=== PATIENT | female | born 1950 | race Two or more races ===

== ENCOUNTER 2017-12-27 02:05 | Inpatient (IN) | END 2017-12-28 14:15 | disposition home or self-care (01) | DRG 744 ==

== ENCOUNTER 2018-05-08 09:59 | Emergency (ER) | END 2018-05-08 14:46 | disposition home or self-care (01) ==

== ENCOUNTER 2019-02-21 10:01 | Day surgery (SDC) | payer MEDICARE, OTHER ==
[~2019-02-21] VITALS: Ht 149.9 cm; Wt 87.3 kg
[2019-02-21] VITALS (13 sets, daily range): BP systolic 125–175; BP diastolic 67–99; PULSE 56–65; RESP 12–18; Ht 149.9 cm; Wt 87.3 kg
[~2019-02-21 10:01] MED LIST: ATEN-51 PO; HYDR12.58 PO; LOSA100T15 PO; METF500T24 PO; NITR-58 PO; SULF1TAB31 PO
[2019-02-21] MEDS ORDERED: HYDR-843 PO (10:32)
[2019-02-21] MEDS ORDERED: TRIAMCINOLONE ACET 40 MG/ML INJ ONE (14:38)
--- NOTE | 2019-02-21 14:53 | PREAC ---
Date/Time of Note Date/Time of Note DATE: 02/21/19 TIME: 14:51 Anesthesia Eval and Record Evaluation Time Pre-Procedure Interview DATE: 02/21/19 TIME: 14:51 Age 68 Sex female NPO: 8 hrs Preoperative diagnosis Ureteral stricture Planned procedure Cystoscopy and Ureteral dilation Past Medical History Past Medical History: Includes Cardio: HTN, Dyslipidemia Endo: Diabetes Pulm: COPD GI: Morbid obesity Surgery & Anesthesia Issues No known issue Meds Anticoagulation: No Beta Megan within 24 hr: Yes Reported Medications Hydroxyzine Hcl* (Hydroxyzine Hcl*) 25 Mg Tablet, 25 MG PO QHS PRN for ITCHING, #30 TAB 02/21/19 Metformin Hcl* (Metformin Hcl*) 500 Mg Tablet, 500 MG PO WITH BREAKFAST DINNE, #60 TAB 05/08/18 Losartan Potassium* (Losartan Potassium*) 100 Mg Tablet, 100 MG PO DAILY, TAB 05/08/18 Hydrochlorothiazide* (Hydrochlorothiazide*) 12.5 Mg Tablet, 12.5 MG PO DAILY, #30 TAB 05/08/18 Atenolol* (Atenolol*) 25 Mg Tablet, 25 MG PO DAILY, #30 TAB 05/08/18 Discontinued Scripts Nitrofurantoin Monohyd Macrocr* (Macrobid*) 100 Mg Capsr, 100 MG PO BID for 10 Days, CAP Prov:LEKKOS,APOSTOLOS A. DO 05/08/18 Sulfamethoxazole/Trimethoprim* (Bactrim Ds* Tablet) 1 Each Tablet, 1 TAB PO BID, #20 TAB Prov:LELYNSEYOSAPOSTOLOS A. DO 05/08/18 Meds reviewed: Yes Allergies Coded Allergies: No Known Allergy (Unverified , 02/21/19) Allergies Reviewed: Yes Labs/Studies Labs Reviewed: Reviewed by anesthesiologist test: N/A Studies: ECG Pre-procedure Exam Last vitals Vital Signs Date Temp Pulse Resp B/P (MAP) Pulse Ox O2 O2 Flow FiO2 Time Delivery Rate 02/21/19 147/67 11:24 (93) 02/21/19 98.0 65 16 98 Room Air 11:06 Airway: Adequate mouth opening, Adequate thyromental dist Mallampati: Mallampati II Teeth: Normal Lung: Normal Heart: Normal ASA Physical Status ASA physical status: 3 Emergency: None Planned Anesthetic General/MAC: LMA Planned Pain Management Parenteral pain med Pre-operative Attestations Prior to commencing anesthesia and surgery, the patient was re-evaluated, there was verification of: *The patient's identity *The results of appropriate recent lab work and preoperative vital signs *The above evaluation not changing prior to induction *Anesthetic plan, risk benefits, alternative and complications discussed with patient/family; questions answered; patient/family understands, accepts and wishes to proceed. KEHINDE SOSA MD Feb 21, 2019 14:53
[2019-02-21] MEDS ORDERED: FENTAnyl 50 MCG/ML VIAL ONE (14:56)
[2019-02-21] MEDS ORDERED: MIDAZOLAM 1 MG/ML 2 ML INJ ONE (14:56)
[2019-02-21] MEDS ORDERED: ONDANSETRON 4 MG INJ ONE (15:47)
[2019-02-21] MEDS ORDERED: LIDOCAINE 2% (SDV) 5 ML INJ ONE (15:47)
[2019-02-21] MEDS ORDERED: CEFAZOLIN 1 GM INJ ONE (15:47)
[2019-02-21] MEDS ORDERED: PROPOFOL 20 ML ONE (15:47)
--- NOTE | 2019-02-21 16:00 | SIPON ---
Date/Time of Note Date/Time of Note DATE: 02/21/19 TIME: 15:58 Operative Report Preoperative Diagnosis urethral meatus stricture Recurrent UTI Postoperative Diagnosis Urethral meatal stricture Cystitis Operation/Procedure Performed Cystoscopy dilation periurethral Kenelog injection Surgeon see signature line budget assistant None Anesthesia: general Estimated blood loss: minimal Transfusion Required none Specimen Bladder urine for culture Grafts/Implants 16 fr mauro cath non latex Complications none RODERICK REESE Feb 21, 2019 16:00
--- NOTE | 2019-02-21 16:01 | PDOCDIS ---
Discharge Instructions DIAGNOSIS Discharge Diagnosis Urethral meatus stricture CONDITION [id number] Patient Condition: [id number] Good HOME CARE INSTRUCTIONS: [id number] Diet Instructions: Dessa5c Regular ACTIVITY: [id number] Activity Restrictions: [id number] Slowly Increase Activity [id number] Bathing Restrictions: Chmms1z Shower FOLLOW UP/APPOINTMENTS Follow-up Plan One week with dr Whitehead;s office for removal of catheter RODERICK WHITEHEAD Feb 21, 2019 16:01
--- NOTE | 2019-02-21 16:06 | PAC ---
Date/Time of Note Date/Time of Note DATE: 02/21/19 TIME: 16:05 Post-Anesthesia Notes Post-Anesthesia Note Last documented vital signs Vital Signs Date Temp Pulse Resp B/P (MAP) Pulse Ox O2 O2 Flow FiO2 Time Delivery Rate 02/21/19 147/67 11:24 (93) 02/21/19 98.0 65 16 98 Room Air 11:06 Activity: WNL Respiratory function: WNL Cardiovascular function: WNL Mental status: Baseline Pain reasonably controlled: Yes Hydration appropriate: Yes Nausea/Vomiting absent: Yes Comments BP:156/78, P:77, Sp02:100%, T:98,8 KEHINDE SOSA MD Feb 21, 2019 16:06
--- NOTE | 2019-02-21 16:09 | DS ---
Date/Time of Note Date/Time of Note DATE: 02/21/19 TIME: 16:06 Discharge Summary Admission/Discharge Info Admit Date/Time 02/21/19 Discharge Date/Time 02/21/19 Discharge Diagnosis Urethral meatus stricture, cystitis Patient Condition: Good Consults None Procedures cysto/dilation urethral injection kenelog Hx of Present Illness Hx recurrent UTI and frequency. found to have Left staghorn calculus and meatus stricture Hospital Course Pt underwent surgery listed above. Once stable, tolerating diet, remaining afebrile, she was dc'd home with mauro catheter Home Meds Reported Medications Hydroxyzine Hcl* (Hydroxyzine Hcl*) 25 Mg Tablet, 25 MG PO QHS PRN for ITCHING, #30 TAB 02/21/19 Metformin Hcl* (Metformin Hcl*) 500 Mg Tablet, 500 MG PO WITH BREAKFAST DINNE, #60 TAB 05/08/18 Losartan Potassium* (Losartan Potassium*) 100 Mg Tablet, 100 MG PO DAILY, TAB 05/08/18 Hydrochlorothiazide* (Hydrochlorothiazide*) 12.5 Mg Tablet, 12.5 MG PO DAILY, #30 TAB 05/08/18 Atenolol* (Atenolol*) 25 Mg Tablet, 25 MG PO DAILY, #30 TAB 05/08/18 Discontinued Scripts Nitrofurantoin Monohyd Macrocr* (Macrobid*) 100 Mg Capsr, 100 MG PO BID for 10 Days, CAP Prov:WILLIAM QUIROZ DO 05/08/18 Sulfamethoxazole/Trimethoprim* (Bactrim Ds* Tablet) 1 Each Tablet, 1 TAB PO BID, #20 TAB Prov:WILLIAM QUIROZ DO 05/08/18 Follow-up Plan One week with dr Whitehead;s office for removal of catheter Primary Care Provider Nancy Kong Time spent on discharge: < 30 minutes Pending Labs Laboratory Tests Test 02/21/19 10:49 Bedside Glucose 130 mg/dL (70-220) RODERICK WHITEHEAD Feb 21, 2019 16:09
[2019-02-21] MEDS ORDERED: HYDROmorphONE 1 MG/5 ML IV SYRINGE IV PRN ×2 (16:30)
[2019-02-21] MEDS ORDERED: KETOROLAC 30 MG INJ IV PRN (16:30)
[2019-02-21] MEDS ORDERED: METOCLOPRAMIDE 10 MG INJ IV PRN (16:30)
[2019-02-21] MEDS ORDERED: OXYCODONE/ACETAMINOPHEN (5/325) TAB PO PRN (16:30)
[2019-02-21] MEDS ORDERED: FENTAnyl 50 MCG/ML VIAL IV PRN (16:30)
[2019-02-21] MEDS ORDERED: hydrALAzine 20 MG INJ IV PRN (16:30)
[2019-02-21] MEDS ORDERED: MEPERIDINE 25 MG INJ IV PRN (16:30)
[2019-02-21] MEDS ORDERED: LABETALOL HCL 20MG INJ IV PRN (16:30)
[2019-02-21] MEDS ORDERED: DIPHENHYDRAMINE 50 MG INJ IV PRN (16:30)
[2019-02-21] MEDS ORDERED: ONDANSETRON 4 MG INJ IV PRN (16:30)
--- NOTE | 2019-02-21 18:31 | PN ---
Date/Time of Note Date/Time of Note DATE: 02/21/19 TIME: 18:29 Assessment/Plan VTE Prophylaxis Risk score (from Nsg)>0 risk: 3 SCD applied (from Nsg): Yes SCD contraindicated: low risk/ambulating Pharmacological prophylaxis: NA/contraindicated Pharm contraindication: bleeding Lines/Catheters IV Catheter Type (from Nrsg): Peripheral IV Central line still needed: No Urinary Cath still in place: No Assessment/Plan Hospital Course Pt underwent surgery listed above. Once stable, tolerating diet, remaining afebrile, she was dc'd home without the mauro catheter. I recommended to her to keep the catheter, but she refused Assessment/Plan Plan Remove muaro cath If pt unable to void then return to ER Results 24hrs Laboratory Tests Test 02/21/19 10:49 Bedside Glucose 130 Subjective 24 Hr Interval Summary Free Text/Dictation Pt refuses to keep her catheter. She will not go home with the catheter. Exam/Review of Systems Exam Vitals Vital Signs Date Temp Pulse Resp B/P (MAP) Pulse Ox O2 O2 Flow FiO2 Time Delivery Rate 02/21/19 60 15 145/72 96 Room Air 16:45 (96) 02/21/19 98.0 8.0 16:00 Results Results 24hrs Laboratory Tests Test 02/21/19 10:49 Bedside Glucose 130 Medications Medication Current Medications Hydromorphone HCl (Dilaudid) 0.2 mg PACU PRN IV MILD PAIN 1-3; Start 02/21/19 at 16:30; Stop 02/21/19 at 21:00 Hydromorphone HCl (Dilaudid) 0.4 mg PACU PRN IV MOD PAIN 4-6; Start 02/21/19 at 16:30; Stop 02/21/19 at 21:00 Fentanyl (Sublimaze) 25 mcg PACU ORDER PRN IV MILD PAIN 1-3; Start 02/21/19 at 16:30; Stop 02/21/19 at 21:00 Ketorolac Tromethamine (Toradol) 30 mg PACU ORDER PRN IV FOR PAIN AFTER IV NARCOTIC MED; Start 02/21/19 at 16:30; Stop 02/21/19 at 21:00 Oxycodone/ Acetaminophen (Percocet (5/ 325)) 1 tab PACU ORDER PRN PO .PAIN 1-5; Start 02/21/19 at 16:30; Stop 02/21/19 at 21:00 Ondansetron HCl (Zofran Inj) 4 mg PACU ORDER PRN IV NAUSEA/VOMITING; Start 02/21/19 at 16:30; Stop 02/21/19 at 21:00 Metoclopramide HCl (Reglan) 10 mg PACU ORDER PRN IV NAUSEA/VOMITING; Start 02/21/19 at 16:30; Stop 02/21/19 at 21:00 Labetalol HCl (Labetalol) 5 mg PACU ORDER PRN IV HIGH BLOOD PRESSURE; Start 02/21/19 at 16:30; Stop 02/21/19 at 21:00 Hydralazine HCl (Apresoline) 5 mg PACU ORDER PRN IV HIGH BLOOD PRESSURE; Start 02/21/19 at 16:30; Stop 02/21/19 at 21:00 Meperidine HCl (Demerol) 25 mg PACU ORDER PRN IV .RIGORS; Start 02/21/19 at 16:30; Stop 02/21/19 at 21:00 Diphenhydramine HCl (Benadryl) 25 mg PACU ORDER PRN IV .PRURITUS; Start 02/21/19 at 16:30; Stop 02/21/19 at 21:00 RODERICK REESE Feb 21, 2019 18:31
--- NOTE | 2019-02-22 05:46 | HP ---
DATE OF ADMISSION: 02/21/2019 CHIEF COMPLAINT: Slow urinary stream, recurrent urinary tract infections, urgency and kidney stone. HISTORY OF PRESENT ILLNESS: This patient has had recurrent urinary tract infections. Her workup has revealed a staghorn calculus in the left kidney with moderate dilation of the calices in the upper a nd mid poles. Her nuclear scan has revealed 29% function left kidney, 71% function right kidney. Mary farah has also had multiple recurrent urinary tract infections. A cystoscopy was attempted in my office but was unsuccessful due to urethral stricture. Patient has had recurrent urinary tract infections. Recently, she had another Proteus infection; how ever, it has been difficult getting hold of her to prescribe antibiotics. We attempted multiple time s to contact her or her son, but were unable to get a hold of her for antibiotics. She reports she d oes not have any increased symptoms of UTI at this point. She has her usual baseline urinary frequen cy and urgency, has not had any gross hematuria, has not had any fevers, chills, flank pain. PAST MEDICAL HISTORY: Diabetes, hypertension. PAST SURGICAL HISTORY: Hysterectomy. FAMILY HISTORY: No history of cancer. SOCIAL HISTORY: Patient does not drink alcohol or smoke. ALLERGIES: No known drug allergies. MEDICATIONS: 1. Metformin. 2. Losartan. PHYSICAL EXAMINATION: CONSTITUTIONAL: The patient appears to be in no acute distress. GASTROINTESTINAL: Abdomen soft. Normal bowel sounds, nondistended, nontender. Hernia exam none not ed. GENITOURINARY: Kidneys, no CVA tenderness. Bladder, no fullness. ASSESSMENT: 1. Urethral meatal stricture, female. 2. Kidney stone. 3. Atrophic left kidney. 4. Urinary tract infection, recurrent. RECOMMENDATIONS: I have spoken with the patient in detail about the natural history and biology of a urethral stricture. She understands her options include but are not limited to no treatment, urethr al dilation, urethroplasty, a direct vision internal urethrotomy. Among these options for her urethr al stenosis I have recommended the patient has elected to undergo cystoscopy with urethral dilation a nd injection of periurethral Kenalog. Procedure has been explained to the patient in detail. She un derstands that risks include, but not limited to infection, bleeding, damage to adjacent structures, heart problems, lung problems, possibility of need for further surgery, DVT, PE, UT, CVA, nonresoluti on of symptoms, recurrence of symptoms, need for other treatments, need for other surgeries, sepsis, gross hematuria, urinary retention, reoccurrence of the stricture. All of her questions have been an swered, no guarantees given. The patient would like to proceed. I also offered to the patient to ca ncel her surgery, different time to proceed. However, the patient is anxious to get the proced ure done at this point due to the fact that she has recurrent urinary tract infections. I also sugge sted that we would proceed with her procedure today. In terms of the patient's kidney stones, the patient at this point is inclined not to have anything d one for her kidney stones. However, if the infections are not cleared with opening of the urethra an d if it appears that the infections are due to the kidney stones, then patient will consider having t reatment for kidney stones. Dictated By: RODERICK REESE MD SR/NTS Conf#: [id number] DID#: [id number]
--- NOTE | 2019-02-22 07:25 | OPR ---
DATE OF OPERATION: 02/21/2019 PREOPERATIVE DIAGNOSES: 1. Urethral stenosis. 2. Recurrent urinary tract infections. POSTOPERATIVE DIAGNOSES: 1. Urethral stenosis. 2. Recurrent urinary tract infections. 3. Kidney stone. OPERATION PERFORMED: 1. Urethral dilation. 2. Cystoscopy. 3. Periurethral injection of Kenalog. INDICATIONS FOR PROCEDURE: This patient has a history of recurrent urinary tract infections as well as a staghorn calculus. An attempt was made to perform a cystoscopy in our office to determine the s ource of her infections; however, it was not successful due to urethral meatal stenosis. She is now scheduled to undergo urethral dilation and injection of Kenalog and cystoscopy. Procedure has been e xplained to the patient in detail. Risks and benefits discussed. All of her questions have been ans wered, no guarantees given. She would like to proceed. FINDINGS: There were patches of cruz-colored bullous edema within the bladder mucosa consistent with cystitis. No bladder tumors were seen, no stones were seen. Ureteral orifices were orthotopic. The patient had a 2+ to 3+ grade cystocele. The meatus was dilated to 28 Bulgarian. Kenalog was injected periurethrally. PROCEDURE IN DETAIL: The patient was brought to the operating room, underwent general anesthesia. S he was placed in lithotomy position. Abdomen, perineum and genitalia were prepped and draped in usua l sterile fashion. The patient was given 2 grams of Ancef IV. Her urine culture was sensitive to An cef. Next, an attempt was made to do a cystoscopy; however, the meatus was very tight. The meatus w as then serially dilated from 8-Bulgarian to 28-Bulgarian. The rest of the urethra was nonobstructive olivier shalom, the meatus appeared to be the point of obstruction. The meatus dilated easily. The cystoscope was then placed into the bladder. Bladder urine was then obtained for culture. Cysto scopy was then performed. The bladder was examined with 30-degree and 70-degree lenses. No bladder tumors were seen. Ureteral orifices were orthotopic, 1+ trabeculation was seen within the bladder. No bladder stones were seen. Studded throughout the mucosa were small patches around the circular 10 colored patches of mucosa which were slightly raised, consistent with bullous edema, consistent with cystitis. No other abnormalities were seen within the bladder. The cystoscope was then discontinue d. A 25-gauge needle was then used to inject Kenalog periurethrally at the urethral meatus at the level of the introitus. This was done circumferentially around the urethral meatus. The needle was advanc ed further along the length of the urethra as well. A total of 4 mL equal 160 mg of Kenalog was inje cted at the meatus and periurethrally. A portion of the urethral meatus, which was open and exhibits mild bleeding was closed using a 4-0 chromic simple suture. A non-latex catheter was then placed tr ansurethrally into the bladder. This was a 16-Bulgarian catheter. Urine was clear yellow. The patient was then placed back in a supine position. She was awakened, extubated, and taken to recovery room in stable condition. POSTOPERATIVE CONDITION: Stable. COMPLICATIONS: None. BLOOD LOSS: Minimal. BLOOD ADMINISTERED: None. SPECIMENS SENT TO LAB: Bladder urine for culture. Dictated By: RODERICK REESE MD SR/ANABELL Conf#: [id number] DID#: [id number]
== END 2019-02-21 18:50 | disposition home or self-care (01) ==
LOC: SDS 10:01
PROVIDERS: ATTEND Surgery Surgical Oncology
DX: N35.92 Unspecified urethral stricture, female (principal); N39.0 Urinary tract infection, site not specified; N20.0 Calculus of kidney; I10 Essential (primary) hypertension; E11.9 Type 2 diabetes mellitus without complications; E78.5 Hyperlipidemia, unspecified; J44.9 Chronic obstructive pulmonary disease, unspecified; Z79.84 Long term (current) use of oral hypoglycemic drugs
CPT/HCPCS: 52344; 82962; 87086; J0690; J2250; J2405; J3010